=== PATIENT | male | born 1965 | race Caucasian/White ===

== ENCOUNTER → 2016-10-13 | Outpatient (CLI) | payer OTHER ==
[2016-10-13 20:33] LABS: ALBUMIN 3.9 GM/DL (3.2-5.2); ALBUMIN/GLOBULIN RATIO 1.11 (1.00-1.93); ALKALINE PHOSPHATASE 78 U/L (45-117); ALT/SGPT 37 U/L (12-78); ANION GAP 5 MEQ/L (8-16); AST/SGOT 20 U/L (15-37); BILIRUBIN,TOTAL 0.5 MG/DL (0.2-1.0); BLOOD UREA NITROGEN 20 MG/DL (7-18); CALCIUM LEVEL 8.5 MG/DL (8.5-10.1); CARBON DIOXIDE LEVEL 27 MEQ/L (21-32); CHLORIDE LEVEL 106 MEQ/L (98-107); CHOLESTEROL LEVEL 175 MG/DL (<200); CREATININE FOR GFR 1.07 MG/DL (0.70-1.30); GLOMERULAR FILTRATION RATE > 60.0 (>56); GLUCOSE, FASTING 97 MG/DL (70-105); POTASSIUM SERUM 4.6 MEQ/L (3.5-5.1); SODIUM LEVEL 138 MEQ/L (136-145); TOTAL PROTEIN 7.4 GM/DL (6.4-8.2); TRIGLYCERIDES LEVEL 78 MG/DL (<150)
== END ==
LOC: M WUC 09:22
PROVIDERS: ATTEND Emergency Medicine
DX: I10 Essential (primary) hypertension (principal); E78.2 Mixed hyperlipidemia; E55.9 Vitamin D deficiency, unspecified; R73.01 Impaired fasting glucose

== ENCOUNTER → 2016-12-04 | Outpatient (REF) | payer OTHER ==
[~2016-12-04] MED LIST: AMLO10TA2 PO; ASPI1TAB PO; ATEN100T PO; SIMV20TA2 PO; VALS1TAB48 PO; VITA1CAP40 PO
[2016-12-04 16:54] LABS: BASO % 0.5 % (0.0-1.0); EOS # 0.1 K/mm3 (0.0-0.50); EOS % 2.5 % (0.0-3.0); LARGE UNSTAINED CELL # 0.1 K/mm3 (0.0-0.4); LARGE UNSTAINED CELL % 2.7 % (0.0-4.0); LYMPH # 1.6 K/mm3 (1.5-4.5); LYMPH % 30.6 % (24.0-44.0); MEAN CORPUSCULAR HEMOGLOBIN 28.7 pg (27.0-33.0); MEAN CORPUSCULAR VOLUME 84.4 fl (80.0-96.0); MONO # 0.3 K/mm3 (0.0-0.8); MONO % 5.9 % (0.0-5.0); NEUTROPHILS # 2.8 K/mm3 (1.8-7.7); NEUTROPHILS % 57.9 % (36.0-66.0); PLATELET COUNT, AUTOMATED 218 k/mm3 (150-450); RED CELL DISTRIBUTION WIDTH 13.1 % (11.5-14.5); WHITE BLOOD COUNT 4.9 K/mm3 (4.0-10.0)
[2016-12-04 17:54] LABS: ANION GAP 8 MEQ/L (8-16); BLOOD UREA NITROGEN 12 MG/DL (7-18); CALCIUM LEVEL 8.8 MG/DL (8.5-10.1); CARBON DIOXIDE LEVEL 27 MEQ/L (21-32); CHLORIDE LEVEL 107 MEQ/L (98-107); CREATININE FOR GFR 1.14 MG/DL (0.70-1.30); GLOMERULAR FILTRATION RATE > 60.0 (>56); GLUCOSE, FASTING 90 MG/DL (70-105); POTASSIUM SERUM 4.2 MEQ/L (3.5-5.1); SODIUM LEVEL 142 MEQ/L (136-145)
== END ==
LOC: M LABDRAW1 15:48
PROVIDERS: ATTEND Emergency Medicine
DX: K42.9 Umbilical hernia without obstruction or gangrene (principal)

== ENCOUNTER 2016-12-14 08:53 | Day surgery (SDC) | payer OTHER ==
[~2016-12-14] VITALS: Ht 177.8 cm; Wt 119.7 kg
[2016-12-14] MEDS ORDERED: LR 1,000 ML IV ONE (09:00)
[2016-12-14] MEDS ORDERED: LR 1,000 ML IV SCH ×2 (09:00→14:00)
[2016-12-14] MEDS ORDERED: BUPIVACAINE HCL 0.25% 30 ML VIAL As Ordered ONE (11:58)
[2016-12-14] MEDS ORDERED: LIDOCAINE 1% SDV INJ 30 ML VIAL As Ordered ONE (11:58)
[2016-12-14] MEDS ORDERED: fentaNYL 100 MCG/2 ML INJECTION (J3010) As Ordered ONE (12:13)
[2016-12-14] MEDS ORDERED: MIDAZOLAM INJ 2 MG/2 ML VIAL (J2250) As Ordered ONE (12:13)
[2016-12-14] MEDS ORDERED: HYDROmorphone HCL 2 MG/ML 1ML VIAL (J1170) As Ordered ONE (12:51)
[2016-12-14] MEDS ORDERED: ONDANSETRON 4MG/2ML VIAL (J2405) As Ordered ONE (13:08)
[2016-12-14] MEDS ORDERED: ePHEDrine SULFATE 25 MG/5 ML(5MG/ML) SYRINGE As Ordered ONE (13:08)
[2016-12-14] MEDS ORDERED: dexameTHASONE 4 MG/ML 1ML VIAL (J1100) As Ordered ONE (13:08)
[2016-12-14] MEDS ORDERED: ROCURONIUM BROMIDE 50 MG/5 ML VIAL/SYRINGE As Ordered ONE (13:08)
[2016-12-14] MEDS ORDERED: LIDOCAINE 2% INJ 100 MG/5 ML SDV (FOR ANES.) As Ordered ONE (13:08)
[2016-12-14] MEDS ORDERED: PROPOFOL 200 MG/20 ML VIAL As Ordered ONE (13:08)
[2016-12-14] MEDS ORDERED: KETOROLAC 60 MG/2 ML VIAL (J1885) As Ordered ONE (13:08)
[2016-12-14] MEDS ORDERED: GLYCOPYRROLATE INJ 0.2 MG/ML 2 ML VIAL As Ordered ONE (13:24)
[2016-12-14] MEDS ORDERED: NEOSTIGMINE 1MG/ML 5 ML SYRINGE (J2710) As Ordered ONE (13:24)
[2016-12-14] MEDS ORDERED: PERCOCET 5MG/325MG TAB PO PRN (14:00)
[2016-12-14] MEDS ORDERED: MEPERIDINE INJ 25 MG/ML VIAL (J2175) IV PRN (14:00)
[2016-12-14] MEDS ORDERED: fentaNYL 100 MCG/2 ML INJECTION (J3010) IV PRN (14:00)
[2016-12-14] MEDS ORDERED: ONDANSETRON 4MG/2ML VIAL (J2405) IV PRN ×3 (14:00→19:00)
[2016-12-14] MEDS ORDERED: NORCO, ANEXSIA 5/325MG TABLET (HYDROcodone/ACETAMINOPHEN) PO PRN ×4 (14:00→19:00)
[2016-12-14] MEDS ORDERED: METOCLOPRAMIDE INJ 10MG/2ML VIAL (J2765) IV PRN (14:00)
[2016-12-14 17:45] VITALS: BP 157/86
[2016-12-14 18:45] VITALS: BP 155/80
[2016-12-14] MEDS ORDERED: ACETAMINOPHEN TAB 650MG DOSE (2X325MG) PO PRN (19:00)
[2016-12-14] MEDS ORDERED: KETOROLAC 30 MG/ML VIAL (J1885) IV PRN (19:00)
[2016-12-14 19:45] VITALS: BP 147/86
[2016-12-14 20:45] VITALS: BP 139/80
[2016-12-14] MEDS: LR 1,000 ML IV SCH (21:40)
[2016-12-14 22:00] VITALS: BP 142/82
[2016-12-15 02:00] VITALS: BP 125/85
[2016-12-15] MEDS: LR 1,000 ML IV SCH (05:30)
[2016-12-15 06:00] VITALS: BP 164/86
[2016-12-15 08:12] VITALS: BP 164/86
[2016-12-15] MEDS ORDERED: ENOXAPARIN 40 MG/0.4 ML SYRINGE (J1650) SC SCH (09:00)
[2016-12-15] MEDS ORDERED: amLODIPine 10 MG TAB PO SCH (09:00)
[2016-12-15] MEDS ORDERED: ATENOLOL 50 MG TAB PO SCH (09:00)
--- NOTE | 2017-01-07 11:41 | ROOPDOC ---
[facility] Report Of Operation Report of Operation DATE OF PROCEDURE: 12/18/2016 PREPROCEDURE DIAGNOSES: Umbilical hernia POSTPROCEDURE DIAGNOSES: Umbilical hernia. PROCEDURE: Laparoscopic umbilical hernia repair. SURGEON: Davonte Beltran MD SCULPTURE INSTRUCTOR: None ANESTHESIA: Gen. anesthesia ESTIMATED BLOOD LOSS: Approximately 10 mL. COMPLICATIONS: None. REMARKS: A small 1-1.5 cm hernia defect containing incarcerated omentum as well as preperitoneal fat within about a 3-4 cm cavity above the hernia defect. A 9 cm round protects composite mesh was placed as intraperitoneal onlay mesh (IPOM) PROCEDURE NOTE: Our patient is a 51-year-old male moderately obese with complaints of pain associated with bulging the superior portion of his umbilicus , noted to have a small incarcerated umbilical hernia. He is brought to the operating room for repair of the symptomatic hernia DESCRIPTION OF PROCEDURE: Patient was brought to the operating room for laparoscopic umbilical hernia repair. He received 2 g of Ancef IV preoperatively for wound prophylaxis. He was placed supine on the operating room table, compression boots placed in both lower extremities for DVT prophylaxis. General endotracheal anesthesia then started without any complication. His abdomen was widely prepped and draped in usual sterile fashion.Timeouts were performed using both preinduction and pre- incision safety checklist to verify correct patient, procedure site and additional clinical information prior to beginning the procedure. Entry into into the abdomen done through a small incision over the left upper quadrant area subcostal, slightly lateral to accommodate the mesh placement. Veress needle was inserted on a controlled fashion. Intra-abdominal placement confirmed with saline drop technique. CO2 insufflation started to pressure 15 mmHg. Using the same incision a 5 mm Visiport was placed under direct vision of laparoscope. The area underneath the insertion site was inspected for injury and none was found. The table was turned right side down to create space for the left side for the working ports. A second working port was placed over the left lower quadrant area above the anterior superior iliac spine level. Operative findings: Diagnostic laparoscopy a small umbilical fascial defect was noted just above the umbilicus where a tongue of omentum was adhered inside the hernia defect. On palpation of the area external to it there is about a 3-4 cm soft tissue nodularity that I could feel. The omentum was retracted back into the abdomen with its attachments to the hernia sac lysed with Harmonic scalpel. There are some preperitoneal fat tissue that was also inside the hernia space above the fascial defect was reduced back inside the abdomen, until no further nodularity that I could feel on palpation of the area above the hernia defect. No definite hernia sac was found. The fatty adipose tissue invested in the peritoneum surrounding the hernia defect was cleared off with Harmonic scalpel. He has an atretic falciform ligament well away from the fascial defect. He has a moderate sized diastases of his midline muscles approximately about 4 centimeters evident. No other abdominal weakness or hernia defects found. After reducing the contents of the hernia defect back into the abdomen making sure we kept adequate hemostasis, I chose a 9 cm Cisneros 6 composite mesh. Labeled the rough side to side will adhered to the abdominal wall, placed 2 transabdominal sutures at the 6 and 12 o'clock position, rolled this tightly and placed this inside the abdomen temporarily removing the left lower quadrant 5 mm port and replacing it back after the mesh and sutures were fully inside the abdomen. The mesh was then unrolled and positioned directly centered underneath the fascial defect and oriented so as the rough side is facing the abdominal wall. Previously marked areas at the 12 and 6 o'clock position in the abdominal wall was punctured with a 15 blade scalpel and the suture passer was then used to retrieve the transabdominal sutures to position the mesh centered at the fascial defect. Once the mesh was adequately positioned and centered, the abdominal pressure was decreased to 8 mmHg.Two rows of secure strap tacking leon were then placed circumferentially to affix the mesh to the abdominal wall with the outside rim of tacks placed 2 cm apart and inside rim about 3-4 cm beyond the fascial defect. The transabdominal sutures were tied snug but not tight. We inspected the mesh for proper placement and this appears to be aligned well to the abdominal wall, no active bleeding noted associated with the tacks. We surveyed the abdomen for any injury. The preperitoneal fat tissue that we reduced back in the abdomen were retrieved. The abdomen was insufflated. All ports were removed. The skin incisions at the port site were closed with 4-0 Monocryl in subsequent fashion. Dermabond dressing was placed at the port sites and the transabdominal sutures sites. Patient simply awakened, extubated and brought to recovery room stable. All counts of sponges and instruments were verified correct. DAVONTE BELTRAN MD Jan 07, 2017 11:41
== END 2016-12-15 11:55 | disposition home or self-care (01) ==
LOC: M SDC 08:53 → M MS5PR 17:20 → M SDC 12-15 11:55
PROVIDERS: ATTEND Surgery
DX: K42.9 Umbilical hernia without obstruction or gangrene (principal); I10 Essential (primary) hypertension; E78.00 Pure hypercholesterolemia, unspecified; R06.83 Snoring; Z79.899 Other long term (current) drug therapy; Z79.82 Long term (current) use of aspirin
CPT/HCPCS: 49652; 96372; 96374; C1781; J0690; J1100; J1170; J1650; J1885; J2250; J2405; J2710; J3010

== ENCOUNTER → 2017-10-08 | Outpatient (REF) | payer OTHER ==
[2017-10-08 12:59] LABS: ESTIMATED AVERAGE GLUCOSE 131 MG/DL (60-110); HEMOGLOBIN A1c 6.2 %
[2017-10-08 13:06] LABS: TOTAL 25(OH) VITAMIN D 40.4 NG/ML (30.0-100.0)
[2017-10-08 13:13] LABS: ALBUMIN 3.9 GM/DL (3.2-5.2); ALBUMIN/GLOBULIN RATIO 1.08 (1.00-1.93); ALKALINE PHOSPHATASE 73 U/L (45-117); ALT/SGPT 32 U/L (12-78); ANION GAP 7 MEQ/L (8-16); AST/SGOT 21 U/L (7-37); BILIRUBIN,TOTAL 0.6 MG/DL (0.2-1.0); BLOOD UREA NITROGEN 17 MG/DL (7-18); CALCIUM LEVEL 8.5 MG/DL (8.5-10.1); CARBON DIOXIDE LEVEL 28 MEQ/L (21-32); CHLORIDE LEVEL 108 MEQ/L (98-107); CHOLESTEROL LEVEL 187 MG/DL (<200); CREATININE FOR GFR 1.14 MG/DL (0.70-1.30); GLOMERULAR FILTRATION RATE > 60.0 (>56); GLUCOSE, FASTING 112 MG/DL (70-100); HDL CHOLESTEROL 55 MG/DL (>40); LDL CHOLESTEROL 111.4 MG/DL (<100); NON-HDL-C 132 MG/DL; POTASSIUM SERUM 4.7 MEQ/L (3.5-5.1); SODIUM LEVEL 143 MEQ/L (136-145); TOTAL PROTEIN 7.5 GM/DL (6.4-8.2); TRIGLYCERIDES LEVEL 103 MG/DL (<150)
== END ==
LOC: M LABDRAWC 11:55
DX: I10 Essential (primary) hypertension (principal); E78.2 Mixed hyperlipidemia; E55.9 Vitamin D deficiency, unspecified; R73.01 Impaired fasting glucose

== ENCOUNTER → 2018-10-14 | Outpatient (REF) | payer OTHER ==
[~2018-10-14] MED LIST changes: -AMLO10TA2 PO; +AMLO10TA5 PO; -ASPI1TAB PO; +ASPI81TA26 PO; -VALS1TAB48 PO; +VALS1TAB68 PO; -VITA1CAP40 PO; +VITA50005 PO
[2018-10-14 12:20] LABS: ALBUMIN 3.6 GM/DL (3.2-5.2); ALT/SGPT 32 U/L (12-78); BILIRUBIN,TOTAL 0.2 MG/DL (0.2-1.0); BLOOD UREA NITROGEN 18 MG/DL (7-18); CALCIUM LEVEL 9.3 MG/DL (8.5-10.1); CARBON DIOXIDE LEVEL 27 MEQ/L (21-32); CHLORIDE LEVEL 108 MEQ/L (98-107); CHOLESTEROL LEVEL 176 MG/DL (<200); CREATININE FOR GFR 1.12 MG/DL (0.70-1.30); GLOMERULAR FILTRATION RATE > 60.0 (>56); GLUCOSE, FASTING 110 MG/DL (70-100); HDL CHOLESTEROL 53 MG/DL (>40); LDL CHOLESTEROL 104 MG/DL (<100); NON-HDL-C 123 MG/DL; POTASSIUM SERUM 4.5 MEQ/L (3.5-5.1); SODIUM LEVEL 141 MEQ/L (136-145); TOTAL 25(OH) VITAMIN D 45.6 NG/ML (30.0-100.0); TOTAL PROTEIN 7.3 GM/DL (6.4-8.2); TRIGLYCERIDES LEVEL 96 MG/DL (<150)
[2018-10-14 13:21] LABS: HEMOGLOBIN A1c 6.4 %
== END ==
LOC: M LABDRAW1 08:59
PROVIDERS: ATTEND Emergency Medicine
DX: I10 Essential (primary) hypertension (principal); E78.2 Mixed hyperlipidemia; E55.9 Vitamin D deficiency, unspecified; R73.01 Impaired fasting glucose

== ENCOUNTER → 2019-04-19 | Outpatient (CLI) | payer OTHER ==
[~2019-04-19] MED LIST changes: -SIMV20TA2 PO; +SIMV20TA22 PO
[2019-04-19 13:24] LABS: ALBUMIN 3.6 GM/DL (3.2-5.2); ALT/SGPT 36 U/L (12-78); BILIRUBIN,TOTAL 0.4 MG/DL (0.2-1.0); BLOOD UREA NITROGEN 20 MG/DL (7-18); CALCIUM LEVEL 8.4 MG/DL (8.5-10.1); CARBON DIOXIDE LEVEL 26 MEQ/L (21-32); CHLORIDE LEVEL 109 MEQ/L (98-107); CHOLESTEROL LEVEL 185 MG/DL (<200); CHOLESTEROL RISK RATIO 3.189 (<5); CREATININE FOR GFR 1.14 MG/DL (0.70-1.30); GLOMERULAR FILTRATION RATE > 60.0 (>56); GLUCOSE, FASTING 116 MG/DL (70-100); HDL CHOLESTEROL 58 MG/DL (>40); LDL CHOLESTEROL 109 MG/DL (<100); NON-HDL-C 127 MG/DL; POTASSIUM SERUM 4.9 MEQ/L (3.5-5.1); SODIUM LEVEL 141 MEQ/L (136-145); TOTAL PROTEIN 7.4 GM/DL (6.4-8.2); TRIGLYCERIDES LEVEL 91 MG/DL (<150)
[2019-04-19 13:36] LABS: HEMOGLOBIN A1c 6.3 %
[2019-04-20 09:25] LABS: TOTAL 25(OH) VITAMIN D 54.9 NG/ML (30.0-100.0)
== END ==
LOC: M WUC 08:06
PROVIDERS: ATTEND Physician Assistant
DX: I10 Essential (primary) hypertension (principal); E78.2 Mixed hyperlipidemia; E55.9 Vitamin D deficiency, unspecified; R73.01 Impaired fasting glucose

== ENCOUNTER → 2019-10-10 | Outpatient (CLI) | payer OTHER ==
[2019-10-10 18:19] LABS: ALBUMIN 3.5 GM/DL (3.2-5.2); ALT/SGPT 40 U/L (12-78); BILIRUBIN,TOTAL 0.4 MG/DL (0.2-1.0); BLOOD UREA NITROGEN 17 MG/DL (7-18); CALCIUM LEVEL 7.9 MG/DL (8.5-10.1); CARBON DIOXIDE LEVEL 27 MEQ/L (21-32); CHLORIDE LEVEL 109 MEQ/L (98-107); GLOMERULAR FILTRATION RATE > 60.0 (>56); GLUCOSE, FASTING 99 MG/DL (70-100); POTASSIUM SERUM 4.5 MEQ/L (3.5-5.1); SODIUM LEVEL 144 MEQ/L (136-145); TOTAL PROTEIN 7.4 GM/DL (6.4-8.2)
[2019-10-10 18:44] LABS: HEMOGLOBIN A1c 6.4 %
[2019-10-12 11:20] LABS: TOTAL 25(OH) VITAMIN D 62.7 NG/ML (30.0-100.0)
== END ==
LOC: M WUC 08:16
PROVIDERS: ATTEND Physician Assistant
DX: I10 Essential (primary) hypertension (principal); E55.9 Vitamin D deficiency, unspecified; R73.01 Impaired fasting glucose

== ENCOUNTER → 2020-04-18 | Outpatient (CLI) | payer OTHER ==
[~2020-04-18] MED LIST changes: -AMLO10TA5 PO; +AMLO1TAB25 PO
[2020-04-18 13:59] LABS: ALT/SGPT 30 U/L (12-78); BILIRUBIN,TOTAL 0.4 MG/DL (0.2-1.0); BLOOD UREA NITROGEN 22 MG/DL (7-18); CALCIUM LEVEL 9.2 MG/DL (8.5-10.1); CARBON DIOXIDE LEVEL 29 MEQ/L (21-32); CHLORIDE LEVEL 105 MEQ/L (98-107); CREATININE FOR GFR 1.26 MG/DL (0.70-1.30); GLOMERULAR FILTRATION RATE > 60.0 (>56); GLUCOSE, FASTING 112 MG/DL (70-100); POTASSIUM SERUM 4.3 MEQ/L (3.5-5.1); SODIUM LEVEL 141 MEQ/L (136-145)
[2020-04-18 14:00] LABS: ALBUMIN 3.8 GM/DL (3.2-5.2); CHOLESTEROL LEVEL 227 MG/DL (<200); CHOLESTEROL RISK RATIO 3.982 (<5); HDL CHOLESTEROL 57 MG/DL (>40); LDL CHOLESTEROL 145 MG/DL (<100); NON-HDL-C 170 MG/DL; TOTAL PROTEIN 7.6 GM/DL (6.4-8.2); TRIGLYCERIDES LEVEL 124 MG/DL (<150)
[2020-04-18 14:27] LABS: TOTAL 25(OH) VITAMIN D 53.5 NG/ML (30.0-100.0)
== END ==
LOC: M PLALAB 09:12
PROVIDERS: ATTEND Physician Assistant
DX: E78.2 Mixed hyperlipidemia (principal); I10 Essential (primary) hypertension; E55.9 Vitamin D deficiency, unspecified; R73.01 Impaired fasting glucose

== ENCOUNTER → 2021-05-25 | Outpatient (CLI) | payer OTHER ==
[2021-05-25 10:23] LABS: BASO % 0.5 % (0.0-1.0); EOS # 0.2 10^3/uL (0.0-0.5); HEMATOCRIT 44.5 % (42.0-52.0); HEMOGLOBIN 13.9 g/dl (13.5-17.5); LYMPH # 1.8 10^3/uL (1.5-5.0); LYMPH % 31.7 % (24.0-44.0); MEAN CORPUSCULAR HEMOGLOBIN 27.5 pg (27.0-33.0); MEAN CORPUSCULAR HGB CONC 31.2 g/dl (32.0-36.5); MEAN CORPUSCULAR VOLUME 87.9 fl (80.0-96.0); MONO # 0.5 10^3/uL (0.0-0.8); MONO % 8.2 % (2.0-8.0); NEUTROPHILS # 3.1 10^3/uL (1.5-8.5); NEUTROPHILS % 56.4 % (36.0-66.0); PLATELET COUNT, AUTOMATED 260 10^3/uL (150-450); RED BLOOD COUNT 5.06 10^6/uL (4.30-6.10); WHITE BLOOD COUNT 5.6 10^3/uL (4.0-10.0)
[2021-05-25 10:51] LABS: ALBUMIN 3.8 GM/DL (3.2-5.2); ALT/SGPT 38 U/L (12-78); BILIRUBIN,TOTAL 0.5 MG/DL (0.2-1.0); BLOOD UREA NITROGEN 21 MG/DL (7-18); CALCIUM LEVEL 8.7 MG/DL (8.5-10.1); CARBON DIOXIDE LEVEL 28 MEQ/L (21-32); CHLORIDE LEVEL 108 MEQ/L (98-107); CHOLESTEROL LEVEL 180 MG/DL (<200); CHOLESTEROL RISK RATIO 3.673 (<5); CREATININE FOR GFR 1.15 MG/DL (0.70-1.30); GLOMERULAR FILTRATION RATE > 60.0 (>56); GLUCOSE, FASTING 114 MG/DL (70-100); HDL CHOLESTEROL 49 MG/DL (>40); LDL CHOLESTEROL 108 MG/DL (<100); NON-HDL-C 131 MG/DL; POTASSIUM SERUM 4.9 MEQ/L (3.5-5.1); SODIUM LEVEL 141 MEQ/L (136-145); TOTAL PROTEIN 7.5 GM/DL (6.4-8.2); TRIGLYCERIDES LEVEL 116 MG/DL (<150)
== END ==
LOC: M WUC 08:09
PROVIDERS: ATTEND Family Medicine
DX: I10 Essential (primary) hypertension (principal); R73.03 Prediabetes

== ENCOUNTER → 2021-11-23 | Outpatient (CLI) | payer OTHER ==
[2021-11-23 10:13] LABS: HEMOGLOBIN A1c 6.1 %
== END ==
LOC: M WUC 08:19
PROVIDERS: ATTEND Nurse Practitioner Family
DX: R73.03 Prediabetes (principal)

== ENCOUNTER → 2022-01-02 | Outpatient (REF) | payer OTHER ==
[2022-01-03 09:41] LABS: BLOOD UREA NITROGEN 23 MG/DL (7-18); CALCIUM LEVEL 8.9 MG/DL (8.5-10.1); CARBON DIOXIDE LEVEL 27 MEQ/L (21-32); CHLORIDE LEVEL 109 MEQ/L (98-107); CREATININE FOR GFR 1.25 MG/DL (0.70-1.30); GLOMERULAR FILTRATION RATE > 60.0 (>56); GLUCOSE, FASTING 87 MG/DL (70-100); POTASSIUM SERUM 4.2 MEQ/L (3.5-5.1); SODIUM LEVEL 140 MEQ/L (136-145)
== END ==
LOC: M LABWUC 08:48
PROVIDERS: ATTEND Nurse Practitioner Family
DX: R94.4 Abnormal results of kidney function studies (principal)

== ENCOUNTER → 2022-05-26 | Outpatient (CLI) | payer OTHER ==
[2022-05-26 10:02] LABS: CHOLESTEROL RISK RATIO 3.56 (<5); LDL CHOLESTEROL 110.6 MG/DL (<100)
[2022-05-26 10:26] LABS: HEMOGLOBIN A1c 5.9 % (4.0-6.0)
== END ==
LOC: M LAB 09:01
PROVIDERS: ATTEND Nurse Practitioner Family
DX: E78.2 Mixed hyperlipidemia (principal); R73.03 Prediabetes

== ENCOUNTER → 2023-05-25 | Outpatient (CLI) | payer OTHER ==
[2023-05-25 10:18] LABS: ALBUMIN 3.7 G/DL (3.2-5.2); ALKALINE PHOSPHATASE 71 U/L (46-116); ALT/SGPT 28 U/L (7.0-40); AST/SGOT 19 U/L (<34); BILIRUBIN,TOTAL 0.7 MG/DL (0.3-1.2); BLOOD UREA NITROGEN 17 MG/DL (9-23); CALCIUM LEVEL 8.8 MG/DL (8.3-10.6); CARBON DIOXIDE LEVEL 26 MMOL/L (20-31); CHLORIDE LEVEL 107 MMOL/L (98-107); CHOLESTEROL LEVEL 178 MG/DL (<200); CHOLESTEROL RISK RATIO 3.45 (<5); CREATININE FOR GFR 1.02 MG/DL (0.70-1.30); GLOMERULAR FILTRATION RATE > 60.0 (>49); GLUCOSE, FASTING 111 MG/DL (74-106); HDL CHOLESTEROL 51.5 MG/DL (>40); HEMOGLOBIN A1c 6.1 % (4.0-6.0); LDL CHOLESTEROL 109.1 MG/DL (<100); NON-HDL-C 126.5 MG/DL; POTASSIUM SERUM 4.2 MMOL/L (3.5-5.1); SODIUM LEVEL 137 MMOL/L (136-145); TOTAL PROTEIN 7.2 G/DL (5.7-8.2); TRIGLYCERIDES LEVEL 87 MG/DL (<150)
[2023-05-25 11:57] LABS: CREATININE, URINE 110.1 MG/DL; MALB URINE SIEMENS < 3.0 MG/L; MAU/CREAT RATIO 2.7 MCG/MG (0.0-30.0)
== END ==
LOC: M LAB 09:07
PROVIDERS: ATTEND Nurse Practitioner Family
DX: I10 Essential (primary) hypertension (principal); E78.2 Mixed hyperlipidemia; R73.03 Prediabetes; E55.9 Vitamin D deficiency, unspecified

== ENCOUNTER → 2024-01-03 | Outpatient (CLI) | payer OTHER | LOC: M PLALAB 08:11 | PROVIDERS: ATTEND Nurse Practitioner Family | DX: R73.03 Prediabetes (principal) ==

== ENCOUNTER → 2024-07-03 | Outpatient (CLI) | payer OTHER ==
[2024-07-03 11:53] LABS: HEMOGLOBIN A1c 6.1 % (4.0-6.0)
[2024-07-03 12:07] LABS: ALBUMIN 3.7 G/DL (3.2-5.2); ALKALINE PHOSPHATASE 73 U/L (40-129); ALT/SGPT 38 U/L (7.0-40); AST/SGOT 26 U/L (<34); BILIRUBIN,TOTAL 0.5 MG/DL (0.3-1.2); BLOOD UREA NITROGEN 19 MG/DL (9-23); CALCIUM LEVEL 8.7 MG/DL (8.3-10.6); CARBON DIOXIDE LEVEL 30 MMOL/L (20-31); CHLORIDE LEVEL 106 MMOL/L (98-107); CHOLESTEROL LEVEL 184 MG/DL (<200); CHOLESTEROL RISK RATIO 3.73 (<5); CREATININE FOR GFR 1.13 MG/DL (0.70-1.30); GLOMERULAR FILTRATION RATE > 60.0 (>49); GLUCOSE, FASTING 122 MG/DL (74-106); HDL CHOLESTEROL 49.3 MG/DL (>40); LDL CHOLESTEROL 116.5 MG/DL (<100); NON-HDL-C 134.7 MG/DL; SODIUM LEVEL 144 MMOL/L (136-145); TOTAL PROTEIN 7.3 G/DL (5.7-8.2); TRIGLYCERIDES LEVEL 91 MG/DL (<150)
== END ==
LOC: M PLALAB 07:00
PROVIDERS: ATTEND Nurse Practitioner Family
DX: I10 Essential (primary) hypertension (principal); E78.2 Mixed hyperlipidemia; R73.03 Prediabetes; E55.9 Vitamin D deficiency, unspecified

== ENCOUNTER → 2025-01-04 | Outpatient (CLI) | payer OTHER ==
[~2025-01-04] MED LIST changes: +VITAD400CA FT
[2025-01-04 11:39] LABS: ESTIMATED AVERAGE GLUCOSE 143.0 MG/DL (60-110)
== END ==
LOC: M PLALAB 08:32
PROVIDERS: ATTEND Nurse Practitioner Family
DX: R73.03 Prediabetes (principal)